=== PATIENT | male | born 1960 | race Caucasian/White ===

== ENCOUNTER 2022-04-05 09:19 | Day surgery (SDC) | payer BC ==
[2022-04-05] MEDS ORDERED: Midazolam 1 MG/ML 2 ML SDV ONE (10:07)
[2022-04-05] MEDS ORDERED: Propofol 200 MG/20 ML SDV ONE (10:07)
[2022-04-05] MEDS ORDERED: fentaNYL 100 MCG/2 ML SDV ONE (10:07)
[2022-04-05] MEDS ORDERED: Lactated Ringers 1,000 ML IV SCH (10:15)
== END 2022-04-05 11:58 | disposition home or self-care (01) ==
LOC: JP.SDS 09:19
PROVIDERS: ATTEND Surgery
DX: Z12.11 Encounter for screening for malignant neoplasm of colon (principal); D12.3 Benign neoplasm of transverse colon; I10 Essential (primary) hypertension; K21.9 Gastro-esophageal reflux disease without esophagitis; J45.909 Unspecified asthma, uncomplicated; Z01.812 Encounter for preprocedural laboratory examination; Z20.822 Contact with and (suspected) exposure to COVID-19
CPT/HCPCS: 88305; J2250; J2704; J3010; J7120; U0002